=== PATIENT | female | born 1955 | race African-American/Black ===

== ENCOUNTER 2018-05-24 20:28 | Emergency (ER) | payer SELFPAY ==
[~2018-05-24] VITALS: Ht 160 cm; Wt 81.0 kg
[2018-05-25] MEDS ORDERED: IBUPROFEN 800MG TABLET PO ONE (00:30)
[2018-05-25] MEDS ORDERED: CLONIDINE 0.1MG TABLET PO ONE (00:30)
[2018-05-25 03:47] VITALS: BP 144/92
== END 2018-05-25 03:50 | disposition home or self-care (01) ==
LOC: ER 20:50
DX: M54.5 Low back pain (principal); M54.2 Cervicalgia; I10 Essential (primary) hypertension; Z90.89 Acquired absence of other organs; V49.09XA Driver injured in collision with other motor vehicles in nontraffic accident, initial encounter; Y93.89 Activity, other specified; Y92.89 Other specified places as the place of occurrence of the external cause; Y99.8 Other external cause status
CPT/HCPCS: 72125; 99284